=== PATIENT | female | born 1935 | race Caucasian/White ===

== ENCOUNTER 2025-03-01 18:03 | Inpatient (IN) | payer MEDICARE, BC, SELFPAY ==
[2025-03-01] VITALS (9 sets, daily range): BP systolic 98–155; BP diastolic 55–86; BMI 26.1; BMI 27.0
[2025-03-01 12:04] LABS: % Basophils 0.4 % (0-2); % Eosinophils 0.1 % (0-6); % Immature Granulocytes 0.9 % (0-0.5); % Lymphocytes 3.8 % (20.5-51.1); % Monocytes 9.4 % (1.7-9.3); % Neutrophils 85.4 % (42.2-75.2); Absolute Basophils 0.1 10^3/uL (0-0.2); Absolute Immature Granulocytes 0.1 10^3/uL (0-0.05); Absolute Lymphocytes 0.6 10^3/uL (1.2-3.4); Absolute Monocytes 1.5 10^3/uL (0.1-0.6); Absolute Neutrophils 13.9 10^3/uL (1.4-6.5); Hematocrit 33.9 % (37.0-47.0); Hemoglobin 11.1 g/dL (12.0-16.0); Mean Corp Hgb Conc. 32.7 g/dL (33.0-37.0); Mean Corpuscular Hgb 28.3 pg (27.0-31.0); Mean Corpuscular Volume 86.5 fL (81.0-99.0); Mean Platelet Volume 9.7 fL (7.4-10.4); Nucleated Red Blood Cells % 0 %; Platelet Count 223 10^3/uL (130-400); Red Blood Cell Count 3.92 10^6/uL (4.20-5.40); Red Cell Dist. Width 13.6 % (11.5-14.5); White Blood Cell Count 16.2 10^3/uL (4.8-10.8)
[2025-03-01 12:19] LABS: ALT (SGPT) 39 U/L (0-35); AST (SGOT) 62 U/L (14-36); Albumin 3.9 g/dl (3.5-5.0); Alkaline Phosphatase 74 U/L (38-126); Blood Urea Nitrogen 16 mg/dl (7-17); Calcium 8.4 mg/dl (8.4-10.2); Carbon Dioxide 23 mmol/L (22-30); Chloride 100 mmol/L (98-107); Estimated Creatinine Clearance 32 ml/min; Glucose 309 mg/dl (70-99); Potassium 3.8 mmol/L (3.5-5.1); Sodium 131 mmol/L (135-145); Total Bilirubin 0.9 mg/dl (0.2-1.3); Total Protein 6.8 g/dl (6.3-8.2); eGFR 54.53
[2025-03-01 12:25] LABS: COVID-19 Antigen Negative (Negative)
[2025-03-01 12:30] LABS: NT-proBNP 1150 pg/ml; Troponin I 0.022 ng/ml
--- NOTE | 2025-03-01 12:33 | ED.GENMED ---
History of Present Illness
General
Chief Complaint: Dizziness
Source: patient and family (daughter at bedside, friend at bedside)
Exam Limitations: none
Time Seen by Provider: 03/01/25 12:05
Nursing documentation reviewed up to this point in time: agreed with
History of Present Illness
History of Present Illness:
89 yo female with h/o HTN, HLD, GERD, NIDDM, depression, presents from home after a falter. Friend at bedside and daughter state last night between 9-11 p.m. they were talking with patient and 'she wasn't making any sense.' The say she had a hard
time getting her words out.
Arrives via EMS reporting Pulse ox 88% RA and placed on O2 4 L N.C
Pt and daughter state pt has been complaining of dizziness with movement for past 2 days. Pt states 'everything spins.' She had a migraine 4 days ago, took Imetrex with good relief. she had chronic intermittent facial pains and these have also been
occurring intermittently but states these are nothing new. She's had general weakness, nausea off and on and no appetite past 3 days.
She had a normal BM today and has been urinating as usual.
Today, they were walking her out to the car, her legs gave out and she faltered, her friend lowered her to ground where pt sat between her legs until EMS arrived. No LOC
Pt states her arms and legs became weak
She denies CP, SOB, cough, abdominal pain, denies n/v/d/c.
She flew here from [place] 02/16 and rode to and from for a family graduation the following week.
Past History
Past History
ED Past Medical History: GERD, HTN, Hypercholesterolemia, NIDDM and Other (anemia on Iron supps)
ED Past Surgical History: Appendectomy, Orthopedic, Tonsilectomy and Other (cataracts)
Social History
Tobacco: Non-smoker
Personal:
Review of Systems
Review of Systems
Allergies reviewed?: Yes
All Other Systems: ROS reviewed and negative except as documented in HPI and ROS
Constitutional: Reports fatigue; Denies fever
Respiratory: Denies cough or trouble breathing
Cardiac: Denies chest pain or syncope
ABD/GI: Reports nausea and anorexia; Denies abdominal pain, vomiting, diarrhea or constipated
: Denies dysuria
Musculoskeletal: Denies edema
Skin: Reports no symptoms
Neurological: Reports dizzy and other (intermittent chronic facial pains); Denies weakness or numbness
Phy Exam
Physical Exam
Physical Exam:
GENERAL: No acute distress. A&Ox3.
CONSTITUTIONAL: Afebrile.
EYES: clear, conjunctivae normal, EOMs intact. PERRL. Good red reflex bilaterally.
ENMT: moist mucus membranes, Pharynx nl
RESPIRATORY: Regular respirations, nonlabored, lungs clear.
CARDIOVASCULAR: Regular rate and rhythm, no murmurs, no rubs.
GI: Soft, nontender, normal BS
MUSCULOSKELETAL: Moves with ease. Well perfused. No edema
SKIN: Warm, dry, pink, deep clean abrasion lateral aspect left ankle
PSYCH: Normal mood and affect. Well kept, interactive and appropriate
NEUROLOGIC: Awake, alert and oriented. Speech clear. Cranial nerves II through XII intact. Hkgfmt-sc-lsdb intact. No focal neurological deficits
Course
Orders/Labs/Results
Orders:
Orders
03/01/25 11:49
Electrocardiogram (*1) Urgent
Reason for Study: Chest Pain
Cardiac Monitoring- Treatment ONCE
EKG- Treatment ONCE
IV Insert/Care/Rem.- Treatment PRN
O2 Therapy [RESP] Urgent
Titrate/Wean O2 to maintain O2 sat greater than (%): 90
Special Instructions: Maintain sats >/=90%
Pulse Ox/spot Check [RESP] Urgent
Quantity: 1
Special Instructions: ON ROOM AIR
03/01/25 11:55
Type And Crossmatch [Type+Screen] Urgent
COVID-19 Antigen Urgent
Source: Nasal Swab
Complete Blood Count/With Diff Urgent
Comprehensive Metabolic Panel Urgent
NT-proBNP Urgent
TSH Reflex To Free T4 Urgent
Comment: ADD ON
Troponin I Urgent
Influenza A+B Rapid Molecular Urgent
[place] Source: Nasal Swab
Specimen Description:
03/01/25 12:21
ABO2 Urgent
BBK Wristband Number:
Associate notified that ABO2 has been ordered: [id number]
Date: 03/01/25
Time: 12:23
Glue Mixer ID: [id number]
03/01/25 12:29
Add On- LAB Urgent
Tests Added?: TSH reflex T4
03/01/25 12:30
CT Head W/o Iv Contrast Urgent
Comment:
Reason For Exam: episode aphasia last pm, now dizzy
03/01/25 12:37
D-Dimer Urgent
03/01/25 14:09
CT Chest PE Study Urgent
Comment:
Reason For Exam: SOB hypoxic, near syncope
03/01/25 Dinner
Regular
At Your Request: Limited Participation
Does patient need a safe tray?: No
03/01/25 16:35
Aztreonam [Azactam] 2,000 mg IV NOW STA
03/01/25 16:43
Sterile Water [Sterile Water For Injection] 20 ml .ROUTE .STK-MED
03/01/25 17:12
Admit/Transfer Patient As Directed
Co-Sign Provider:
Level of Care: Inpatient admission
Assign to:: Telemetry
Physician / Group: sindi
Diagnosis: pneumonia
Reason for Telemetry: Arrhythmia
Date to Stop Telemetry: 03/04/25
Time to Stop Telemetry: 11:00
Reason for Hospitalization: weakness
Expected length of stay greater than two midnights?: Yes
ELOS- Estimated Length of Stay in days: 2
I certify the patient meets the requirements for IP care: Yes
PRN Pain Medication Management As Directed
May give lesser potent ordered pain med per pt: Yes
preference::
Protocol:: Medication orders for pain may be administered in a
manner that supports deferring to patient preference
when the pt is:
- Requesting an ordered lesser potent pain medication.
Least to most potent pain medications are defined
as: acetaminophen < NSAID < tramadol < opioids
(morphine, oxycodone, hydromorphone).
- Requesting a lesser dose of the same medication IF
ORDERED.
- Requesting a less intrusive route of administration
if both routes are prescribed by the provider (PO <
IV).
03/01/25 17:14
Code Status As Directed
Resuscitation Status: Full Code
03/01/25 17:24
Sputum Culture [Respiratory Culture/Gram Stain] Routine
[place] Source: Sputum
Specimen Description:
03/01/25 18:40
LevoFLOXacin 750 MG/150 ML [Levaquin] 750 mg in 150 ml IV Q24H
Meclizine [Antivert] 25 mg PO DAILY PRN dizziness
Tizanidine [Zanaflex] 2 mg PO Q8HPRN PRN muscle spasm
duloxetine 60 mg PO QPM
sumatriptan succinate 100 mg PO DAILYPRN PRN
03/01/25 18:40
Activity As Directed
Activity Level: As Tolerated
Vital Signs As Directed
Frequency: Per unit guidelines
DX Deep Vein Thrombosis Video Routine
03/01/25 20:00
Carbamazepine [Tegretol] 200 mg PO BID
Heparin 5,000 units SC Q12
Metformin Extended Release [Glucophage Xr Extended Release] 500 mg PO BID
03/02/25 06:00
Complete Blood Count/With Diff IN AM
Comprehensive Metabolic Panel IN AM
03/02/25 08:00
Ascorbic Acid [Vitamin C] 500 mg PO DAILY
Atorvastatin [Lipitor] 20 mg PO DAILY
Cholecalciferol (Vitamin D3) [VITAMIN D3 (cholecalciferol)] 25 mcg PO DAILY
Cyanocobalamin [Vitamin B-12] 1,000 mcg PO DAILY
Duloxetine Delayed Release [Cymbalta Delayed Release] 20 mg PO DAILY
Ferrous Sulfate [Feosol] 325 mg PO DAILY
Losartan [Cozaar] 100 mg PO DAILY
Multivitamin [Theragran] 1 tablet PO DAILY
omeprazole 20 mg PO DAILY
03/04/25 11:00
DC Protocol for Telemetry ONCE
Abnormal Lab Results
03/01/25 03/01/25
11:55 12:37
WBC 16.2 H 10^3/uL
(4.8-10.8)
RBC 3.92 L 10^6/uL
(4.20-5.40)
Hgb 11.1 L g/dL
(12.0-16.0)
Hct 33.9 L %
(37.0-47.0)
MCHC 32.7 L g/dL
(33.0-37.0)
Abs Immat Gran (auto) 0.1 H 10^3/uL
(0-0.05)
Absolute Neuts (auto) 13.9 H 10^3/uL
(1.4-6.5)
Absolute Lymphs (auto) 0.6 L 10^3/uL
(1.2-3.4)
Absolute Monos (auto) 1.5 H 10^3/uL
(0.1-0.6)
Immature Gran % 0.9 H %
(0-0.5)
Neutrophils % 85.4 H %
(42.2-75.2)
Lymphocytes % 3.8 L %
(20.5-51.1)
Monocytes % 9.4 H %
(1.7-9.3)
D-Dimer 1.62 H ug/mlFEU
(0.00-0.50)
Sodium 131 L mmol/L
(135-145)
Glucose 309 H mg/dl
(70-99)
AST 62 H U/L
(14-36)
ALT 39 H U/L
(0-35)
03/01/25 11:55
03/01/25 11:55
Vital Signs
Initial and Last Documented VS:
Initial Vital Signs
Pulse Resp Pulse Ox
80 21 96
03/01/25 11:50 03/01/25 11:50 03/01/25 11:50
Last Documented Vital Signs
Temp Pulse Resp BP Pulse Ox
101.1 F H 91 16 155/86 94
03/01/25 18:53 03/01/25 18:53 03/01/25 18:53 03/01/25 18:53 03/01/25 18:53
MDM/Problems Addressed
Differential Diagnosis Includes:
TIA, BPPV, PNA, PE
MDM/Problems Addressed:
89 yo female with h/o HTN, HLD, GERD, NIDDM, depression, presents from home after a falter. Friend at bedside and daughter state last night between 9-11 p.m. they were talking with patient and 'she wasn't making any sense.' The say she had a hard
time getting her words out.
Arrives via EMS reporting Pulse ox 88% RA and placed on O2 4 L N.C
Pt and daughter state pt has been complaining of dizziness with movement for past 2 days. Pt states 'everything spins.' She had a migraine 4 days ago, took Imetrex with good relief. she had chronic intermittent facial pains and these have also been
occurring intermittently but states these are nothing new. She's had general weakness, nausea off and on and no appetite past 3 days.
She had a normal BM today and has been urinating as usual.
Today, they were walking her out to the car, her legs gave out and she faltered, her friend lowered her to ground where pt sat between her legs until EMS arrived. No LOC
Pt states her arms and legs became weak
She denies CP, SOB, cough, abdominal pain, denies n/v/d/c.
She flew here from [place] 02/16 and rode to and from for a family graduation the following week.
12:50 p.mm.
EKG: NSR
CBC: WBC 16.2 with elevated neutrophils
CMP: No clinically significant abnormality
Troponin within normal limits
BNP 1150 within the normal range for her age
2:10 p.m.
D dimer 1.62
Pulse ox 94% on 4 L NC. HR 84 No respiratory distress
Pt remains comfortable
Head CT radiology report: IMPRESSION:
No acute intracranial abnormality noted.
Moderate atrophy. Progressed.
4:[address]: No PE, large left upper lobe pneumonia
Pt gets 'significant hives, redness' with PCN. Astreonam ordered
Hospitalist notified of admission.
Chronic conditions affecting care: HTN
*EKG
EKG Intrepretation Date: 03/01/25
Interpretation: normal
Heart Rate: 79
Rate: normal
Rhythm: sinus
Ruso: normal axis
Interval: normal interval
QRS Pattern: normal QRS
Ischemia: no ischemia
*Critical Care Note
Total Time (30-74mins, 75-104mins- exclusive of procedures): Not Applicable
ED Attending Note
-
Portions of this chart may have been created with voice recognition software.� Occasional wrong word or��sound alike� substitutions may have occurred due to the inherent limitations of voice recognition software.
Discharge Plan
Departure
Patient Disposition: Admit
Date of Disposition: 03/01/25
Time of Disposition: 16:22
Presentation/result/management discussed w/ accepting MD/DO: Hospitalist
Condition: Fair
Covid-19: Negative COVID-19
Discharge Problem:
Left upper lobe pneumonia, Hypoxemia
Interventions
Interventions:
*Risk Screen - Suicide Last Done: 03/01/25 11:56
*General Assessment Last Done: 03/01/25 11:56
*Neglect/Abuse Screening Last Done: 03/01/25 11:56
*ED- Fall Risk Assessment Last Done: 03/01/25 11:56
*ED COVID-19 Vaccine History Last Done: 03/01/25 11:56
*Nursing Disposition Last Done: 03/01/25 18:32
ED- Neurological Assessment Last Done: 03/01/25 12:10
ED- Cardiac Assessment Last Done: 03/01/25 12:10
ED Swallowing Screen Last Done: 03/01/25 17:04
Discharge Date and Time
Discharge Date/Time: 03/01/25 18:33
[2025-03-01 13:01] LABS: D-Dimer 1.62 ug/mlFEU (0.00-0.50)
[2025-03-01 14:36] LABS: TSH Reflex To Free T4 2.21 uIU/ml (0.47-4.68)
[2025-03-01] MEDS: AZACTAM 2000 MG IV (16:44)
--- NOTE | 2025-03-01 17:21 | HPS.HSE ---
Addendum entered and electronically signed by Bella Romano MD 03/01/25 20:33:
Stopped metformin and added ISS.
Addendum entered and electronically signed by Bella Romano MD 03/01/25 19:59:
Patient becoming febrile with fever 101.1. She had vomiting. Currently meets sepsis criteria. IV fluid bolus maintenance IV fluids ordered. Blood cultures ordered.
Original Note:
Family Physician
-
Family Physician: * NONE
Chief Complaint
-
weakness
History of Present Illness
Allergies
Allergy/AdvReac Type Severity Reaction Status Date / Time
codeine Allergy Unknown Verified 04/22/22 11:18
Penicillins Allergy Unknown Verified 04/22/22 11:18
Home Medications
ascorbic acid (vitamin C) 500 mg tablet (Vitamin C) 500 mg PO DAILY 03/01/25
atorvastatin 20 mg tablet 20 mg PO DAILY 03/01/25
carbamazepine 200 mg tablet 200 mg PO BID 03/01/25
cholecalciferol (vitamin D3) 25 mcg (1,000 unit) tablet 25 mcg PO DAILY 03/01/25
cyanocobalamin (vitamin B-12) 1,000 mcg tablet 1,000 mcg PO DAILY 03/01/25
duloxetine 20 mg capsule,delayed release 20 mg PO DAILY 03/01/25
duloxetine 60 mg capsule,delayed release sprinkle 60 mg PO QPM 03/01/25
ferrous sulfate 325 mg (65 mg iron) tablet 325 mg PO DAILY 03/01/25
losartan 100 mg tablet 100 mg PO DAILY 03/01/25
meclizine 25 mg tablet 25 mg PO DAILY PRN dizziness 03/01/25
metformin 500 mg tablet,extended release 24 hr 500 mg PO BID 03/01/25
omeprazole 20 mg tablet,delayed release 20 mg PO DAILY 03/01/25
sumatriptan succinate 100 mg tablet 100 mg PO DAILYPRN PRN migraine 03/01/25
therapeutic multivitamin 1 tab PO DAILY 03/01/25
tizanidine 2 mg tablet 2 mg PO Q8HPRN PRN muscle spasm 03/01/25
Medical History
Past Medical History
Past Medical History: Reports Other (89-year-old female past medical history of hypertension, hyperlipidemia, GERD, diabetes, depression presenting after a falter.. Friend at bedside and daughter states that last night between 9 to 11 PM they were
talking with patient and she was not making any sense. They say she had a hard time get)
Past Surgical History: Reports Other (Appendectomy, Orthopedic, Tonsilectomy and Other (cataracts))
Social History
Tobacco: Non-smoker
Alcohol: None
Drug: None
Family History
Family History: Not pertinent
Allergies / Home Medications
Allergies reflects when Allergies were last updated in [facility].
Home Medications with original date entered in [facility]
Allergy/Medication List:
Allergies
Allergy/AdvReac Type Severity Reaction Status Date / Time
codeine Allergy Unknown Verified 04/22/22 11:18
Penicillins Allergy Unknown Verified 04/22/22 11:18
Home Medications
ascorbic acid (vitamin C) 500 mg tablet (Vitamin C) 500 mg PO DAILY 03/01/25
atorvastatin 20 mg tablet 20 mg PO DAILY 03/01/25
carbamazepine 200 mg tablet 200 mg PO BID 03/01/25
cholecalciferol (vitamin D3) 25 mcg (1,000 unit) tablet 25 mcg PO DAILY 03/01/25
cyanocobalamin (vitamin B-12) 1,000 mcg tablet 1,000 mcg PO DAILY 03/01/25
duloxetine 20 mg capsule,delayed release 20 mg PO DAILY 03/01/25
duloxetine 60 mg capsule,delayed release sprinkle 60 mg PO QPM 03/01/25
ferrous sulfate 325 mg (65 mg iron) tablet 325 mg PO DAILY 03/01/25
losartan 100 mg tablet 100 mg PO DAILY 03/01/25
meclizine 25 mg tablet 25 mg PO DAILY PRN dizziness 03/01/25
metformin 500 mg tablet,extended release 24 hr 500 mg PO BID 03/01/25
omeprazole 20 mg tablet,delayed release 20 mg PO DAILY 03/01/25
sumatriptan succinate 100 mg tablet 100 mg PO DAILYPRN PRN migraine 03/01/25
therapeutic multivitamin 1 tab PO DAILY 03/01/25
tizanidine 2 mg tablet 2 mg PO Q8HPRN PRN muscle spasm 03/01/25
Review of Systems
-
History Source: Patient
A 12 point ROS was completed and negative except as noted: Yes
Constitutional: Reports No Symptoms
EENT: Reports No Symptoms
Respiratory: Reports No Symptoms
Cardiac: Reports No Symptoms
Abdomen/GI: Reports No Symptoms
: Reports No Symptoms
Musculoskeletal: Reports No Symptoms
Skin: Reports No Symptoms
Neurological: Reports No Symptoms
Endocrine: Reports No Symptoms
Hematologic/Lymphatic: Reports No Symptoms
Psych: Reports No Symptoms
Physical Exam
Vital Signs
Vital Signs
Temp Pulse Resp BP Pulse Ox
98.5 F 81 28 120/64 92
03/01/25 11:53 03/01/25 16:15 03/01/25 16:15 03/01/25 16:04 03/01/25 16:15
Physical Exam
General: Well Developed, Well Nourished and No Apparent Distress
HEENT: NormoCephalic, Moist mucous membranes and Atraumatic
Respiratory: Clear
Cardiac: S1/S2 and Regular Rhythm; No Murmur or Rub
GI: Soft, Non Tender, Non Distended and Normal Bowel Sounds; No Organomegaly
Rectal: Deferred by Provider
Musculoskeletal: No Clubbing, No Cyanosis and No Edema
Skin: No Rash
Neuro: Nonfocal/grossly intact
Laboratory Results
-
03/01/25 11:55
03/01/25 11:55
Laboratory Results
Total Bilirubin 0.9 mg/dl (0.2-1.3) 03/01/25 11:55
AST 62 U/L (14-36) H 03/01/25 11:55
ALT 39 U/L (0-35) H 03/01/25 11:55
Alkaline Phosphatase 74 U/L (38-126) 03/01/25 11:55
Troponin I 0.022 ng/ml 03/01/25 11:55
Data Reviewed
-
Lab Data: Labs Reviewed by me
Old Records: Reviewed
Impression/Plan
-
IMPRESSION:
PLAN:
# Acute hypoxemic respiratory failure secondary to large left upper lobe pneumonia
- Leukocytosis 16
-sputum culture
- D-dimer 1.[address] PE which showed large left upper lobe pneumonia
- COVID and influenza negative
- Levaquin given penicillin allergy
# Mild transaminitis possibly hepatic steatosis
- Continue to monitor
Essential hypertension
- Continue losartan
Hyperlipidemia
- Continue statin
GERD
- Continue omeprazole
Type 2 diabetes
- Continue metformin
Depression
- Continue duloxetine
Chronic anemia
- Continue iron supplement
History of migraines
- Continue Tegretol
History of temporomandibular joint dysfunction
Full code
DVT prophylaxis�heparin
Regular diet
--- NOTE | 2025-03-01 18:51 | PTCARENOTE ---
Pt. arrived from ED, pulled over to bed by staff. Pt. n/v with movement. Temp 101.4, Dr. Romano made aware via tiger text. Pt. settled in bed at this time with monitoring coordinator in place. Will pass on to oncoming shift RN. Call escobedo within reach
and bed alarm on.
[2025-03-01 21:50] LABS: Glucose - Point of Care 202 mg/dl (70-99)
[2025-03-01] MEDS: HEPARIN 5000 UNITS SC (22:00)
[2025-03-01] MEDS: NSS 1000 IV (22:00)
[2025-03-01] MEDS: LEVAQUIN 150 IV (22:01)
[2025-03-01] MEDS: TEGRETOL 200 MG PO (22:01)
[2025-03-01] MEDS: CYMBALTA DELAYED RELEASE 60 MG PO (22:02)
--- NOTE | 2025-03-01 22:30 | PTCARENOTE ---
Receive pt from ER. Pt alert oriented X2, confused to time, in no resp distress. pt pulled over to her bed. Pt oriented to place and time, bed alarm in place. Pt on NSR on telemonitor. T=101.1, HR=91, RW=071/86, SPo2=95% on 4L O2. IVFs Bolus and
Levaquin infusing as per order. Recheck Temp=99. Will continue to monitor the pt.
[2025-03-02] MEDS: NSS 1000 IV ×3 (00:06→22:07)
[2025-03-02 03:02] VITALS: BP 128/67
[2025-03-02 07:38] VITALS: BP 106/65
[2025-03-02 07:58] LABS: % Basophils 0.3 % (0-2); % Eosinophils 0.1 % (0-6); % Immature Granulocytes 1.2 % (0-0.5); % Monocytes 9.9 % (1.7-9.3); % Neutrophils 83.5 % (42.2-75.2); Absolute Immature Granulocytes 0.2 10^3/uL (0-0.05); Absolute Lymphocytes 0.7 10^3/uL (1.2-3.4); Absolute Monocytes 1.4 10^3/uL (0.1-0.6); Absolute Neutrophils 11.6 10^3/uL (1.4-6.5); Hematocrit 28.3 % (37.0-47.0); Hemoglobin 9.3 g/dL (12.0-16.0); Mean Corp Hgb Conc. 32.9 g/dL (33.0-37.0); Mean Corpuscular Hgb 28.9 pg (27.0-31.0); Mean Corpuscular Volume 87.9 fL (81.0-99.0); Mean Platelet Volume 10.4 fL (7.4-10.4); Nucleated Red Blood Cells % 0 %; Platelet Count 209 10^3/uL (130-400); Red Blood Cell Count 3.22 10^6/uL (4.20-5.40); Red Cell Dist. Width 13.8 % (11.5-14.5); White Blood Cell Count 13.9 10^3/uL (4.8-10.8)
[2025-03-02 08:39] LABS: ALT (SGPT) 39 U/L (0-35); AST (SGOT) 45 U/L (14-36); Albumin 3.2 g/dl (3.5-5.0); Alkaline Phosphatase 69 U/L (38-126); Blood Urea Nitrogen 17 mg/dl (7-17); Calcium 7.3 mg/dl (8.4-10.2); Carbon Dioxide 22 mmol/L (22-30); Chloride 102 mmol/L (98-107); Estimated Creatinine Clearance 33 ml/min; Glucose 146 mg/dl (70-99); Potassium 3.7 mmol/L (3.5-5.1); Sodium 132 mmol/L (135-145); Total Bilirubin 0.5 mg/dl (0.2-1.3); Total Protein 5.9 g/dl (6.3-8.2); eGFR > 60.00
[2025-03-02] MEDS: PROTONIX 40 MG PO (08:59)
[2025-03-02] MEDS: VITAMIN C 500 MG PO (09:00)
[2025-03-02] MEDS: VITAMIN B-12 1000 MCG PO (09:00)
[2025-03-02] MEDS: FEOSOL 325 MG PO (09:00)
[2025-03-02] MEDS: HEPARIN 5000 UNITS SC ×2 (09:00→20:50)
[2025-03-02] MEDS: VITAMIN D3 (cholecalciferol) 25 MCG PO (09:00)
[2025-03-02] MEDS: TEGRETOL 200 MG PO ×2 (09:00→20:51)
[2025-03-02] MEDS: CYMBALTA DELAYED RELEASE 20 MG PO (09:00)
[2025-03-02] MEDS: LIPITOR 20 MG PO (09:00)
[2025-03-02] MEDS: THERAGRAN 1 TABLET PO (09:00)
[2025-03-02] MEDS: COZAAR 100 MG PO (09:01)
[2025-03-02 09:08] LABS: Glucose - Point of Care 157 mg/dl (70-99)
[2025-03-02] MEDS: NOVOLOG FLEXPEN-LOW RESISTANCE 1 UNITS SC ×2 (09:33→17:09)
[2025-03-02] MEDS: ZOFRAN 4 MG IV (09:56)
--- NOTE | 2025-03-02 10:29 | CM ---
Patient seen bedside, initial assessment completed. Patient is a 89-year-old female past medical history of hypertension, hyperlipidemia, GERD, diabetes, depression presenting after a falter.
Patient primarily resides in [place], [place], but is currently visiting her daughter who lives locally in [place] for next 3-4 months.
Daughter's home is a 2STH w/ steps, patient uses garage entrance as front steps are too high to ascend. Patient uses cane to ambulate, independent w/ ADLs. Patient stated bathroom was redone w/ a new shower and has shower chair. No SNF/HC hx
reported. OP therapy in the past.
Address, point of contact and insurance verified
PCP: Arlin Mullins
Pharmacy: [facility]
PT/OT ordered, will watch for any recommendations
Plan: Await PT/OT to determine potential d/c plan
[2025-03-02 10:36] LABS: Glycohemoglobin (HgbA1c) 8.1 % (4.0-5.6)
[2025-03-02 11:09] VITALS: BP 104/50
--- NOTE | 2025-03-02 11:26 | W.PN.HOSP.TC ---
Today's Communication/Plan
-
see outlined plan below
Assessment / Plan
Assessment / Plan
Assessment:
Acute hypoxemic respiratory failure secondary to large left upper lobe pneumonia
Sepsis POA (fever, leucocytosis)
- continue Levaquin given PCN allergy
- monitor fever/WBC trends
- wean O2 as able
- PT/OT/ST evals
Hyponatremia
- monitor
Mild transaminitis possibly hepatic steatosis
- continue to monitor
Essential hypertension
- continue losartan
Hyperlipidemia
- continue statin
GERD
- continue omeprazole
Type 2 diabetes
- continue metformin
- A1c is 8.1%
Depression
- continue duloxetine
Chronic anemia
- continue iron supplement
History of migraines
- continue Tegretol
History of temporomandibular joint dysfunction
DVT ppx: SC heparin
Code: Full
Anticipated Discharge: > 48 hours
Subjective/Interval History
-
Date of Service: March 02, 2025
earlier was mildly nauseated but improving
resting comfortably, no complaints at present
on 3L NC
Objective Data
-
Labs:
Laboratory Results
03/02/25
06:14
WBC 13.9 H
Hgb 9.3 L
Hct 28.3 L
Plt Count 209
Sodium 132 L
Potassium 3.7
Chloride 102
Carbon Dioxide 22
BUN 17
Creatinine 0.9
Glucose 146 H
Calcium 7.3 L
Total Bilirubin 0.5
AST 45 H
ALT 39 H
Alkaline Phosphatase 69
Vital Signs:
Vital Signs
Temp Pulse Resp BP Pulse Ox
100 F 86 16 106/65 95
03/02/25 07:38 06/02/25 07:38 03/02/25 07:38 03/02/25 07:38 03/02/25 07:38
I&O
03/01/25 03/02/25 03/03/25
06:59 06:59 06:59
Intake Total 1550 / 1550
Balance 1550 / 1550
Physical Exam
-
General: No Apparent Distress
HEENT: Normocephalic and Atraumatic
Respiratory: Rhonchi (DONOVAN) and Crackles (DONOVAN)
Cardiac: Regular Rhythm and S1/S2
GI: Soft and Nontender
Genito-urinary: No Costovertebral Tender
Musculoskeletal: No Edema
Neuro: AO x 3
Psych: Calm
Data Reviewed
-
Total Time Spent with Patient (in minutes): 45
Labs: Labs Reviewed by me
[2025-03-02] MEDS: TYLENOL 650 MG PO ×2 (12:12→23:26)
[2025-03-02 12:43] LABS: Glucose - Point of Care 240 mg/dl (70-99)
[2025-03-02] MEDS: NOVOLOG FLEXPEN-LOW RESISTANCE 2 UNITS SC (13:25)
[2025-03-02] MEDS: MUCINEX 1200 MG PO ×2 (13:26→20:51)
[2025-03-02 15:08] VITALS: BP 91/48
[2025-03-02] MEDS: CYMBALTA DELAYED RELEASE 60 MG PO (17:01)
[2025-03-02 17:05] LABS: Glucose - Point of Care 173 mg/dl (70-99)
[2025-03-02 20:45] VITALS: BP 115/64
[2025-03-02 21:37] LABS: Glucose - Point of Care 174 mg/dl (70-99)
[2025-03-02 23:24] VITALS: BP 112/58
[2025-03-03] VITALS (10 sets, daily range): BP systolic 98–124; BP diastolic 55–65; PULSE 79; O2SAT 94
[2025-03-03 07:55] LABS: Hematocrit 26.6 % (37.0-47.0); Hemoglobin 8.8 g/dL (12.0-16.0); Mean Corp Hgb Conc. 33.1 g/dL (33.0-37.0); Mean Corpuscular Hgb 29.3 pg (27.0-31.0); Mean Corpuscular Volume 88.7 fL (81.0-99.0); Mean Platelet Volume 9.8 fL (7.4-10.4); Platelet Count 205 10^3/uL (130-400); Red Cell Dist. Width 14.1 % (11.5-14.5); White Blood Cell Count 11.4 10^3/uL (4.8-10.8)
[2025-03-03 08:12] LABS: Glucose - Point of Care 163 mg/dl (70-99)
[2025-03-03 08:35] LABS: ALT (SGPT) 39 U/L (0-35); AST (SGOT) 49 U/L (14-36); Albumin 2.8 g/dl (3.5-5.0); Alkaline Phosphatase 60 U/L (38-126); Blood Urea Nitrogen 17 mg/dl (7-17); Calcium 6.9 mg/dl (8.4-10.2); Carbon Dioxide 22 mmol/L (22-30); Chloride 107 mmol/L (98-107); Estimated Creatinine Clearance 30 ml/min; Glucose 149 mg/dl (70-99); Potassium 3.5 mmol/L (3.5-5.1); Sodium 134 mmol/L (135-145); Total Bilirubin 0.4 mg/dl (0.2-1.3); Total Protein 5.3 g/dl (6.3-8.2); eGFR 54.53
[2025-03-03] MEDS: COZAAR PO (08:54)
[2025-03-03] MEDS: NOVOLOG FLEXPEN-LOW RESISTANCE 1 UNITS SC ×2 (09:28→12:58)
[2025-03-03] MEDS: HEPARIN 5000 UNITS SC ×2 (09:29→20:14)
[2025-03-03] MEDS: LIPITOR 20 MG PO (09:29)
[2025-03-03] MEDS: VITAMIN C 500 MG PO (09:29)
[2025-03-03] MEDS: CYMBALTA DELAYED RELEASE 20 MG PO (09:29)
[2025-03-03] MEDS: TEGRETOL 200 MG PO ×2 (09:29→20:14)
[2025-03-03] MEDS: FEOSOL 325 MG PO (09:29)
[2025-03-03] MEDS: THERAGRAN 1 TABLET PO (09:29)
[2025-03-03] MEDS: PROTONIX 40 MG PO (09:29)
[2025-03-03] MEDS: MUCINEX 1200 MG PO ×2 (09:29→20:13)
[2025-03-03] MEDS: VITAMIN D3 (cholecalciferol) 25 MCG PO (09:29)
[2025-03-03] MEDS: CALCIUM GLUCONATE 130 MG IV (09:30)
--- NOTE | 2025-03-03 09:48 | PTOTSP ---
Dysphagia Eval
Patient without signs of oral/pharyngeal dysphagia or aspiration. She has a history of GERD and moderate hiatal hernia that elevate risk for bottom up aspiration.
Recommend:
1. Regular, Thin
2. Medications as best tolerated
3. Aspiration and reflux precautions
4. No further dysphagia tx warranted. Please reconsult as appropriate.
--- NOTE | 2025-03-03 09:51 | W.PN.HOSP.TC ---
Today's Communication/Plan
-
wean O2; add IS/Acapella to facilitate
continue IVF until more established PO intake
Assessment / Plan
Assessment / Plan
Assessment:
Acute hypoxemic respiratory failure secondary to large left upper lobe pneumonia
Sepsis POA (fever, leucocytosis)
- continue Levaquin, day 3 given PCN allergy
- monitor fever/WBC trends
- wean O2 as able
- PT/OT/ST evals
Hyponatremia
- monitor
Mild transaminitis possibly hepatic steatosis
- continue to monitor
Essential hypertension
- continue losartan
Hyperlipidemia
- continue statin
GERD
- continue omeprazole
Type 2 diabetes
- continue metformin
- A1c is 8.1%
Depression
- continue duloxetine
Chronic anemia
- continue iron supplement
History of migraines
- continue Tegretol
History of temporomandibular joint dysfunction
Hypocalcemia in setting of hypoalbuminemia
- suspect dilutional effect from IVF; will replete with IV Calcium
DVT ppx: SC heparin
Code: Full
Anticipated Discharge: 24 - 48 hours
Subjective/Interval History
-
Date of Service: March 03, 2025
more alert today
remains on 3L NC
denies any complaints
Objective Data
-
Labs:
Laboratory Results
03/03/25
07:38
WBC 11.4 H
Hgb 8.8 L
Hct 26.6 L
Plt Count 205
Sodium 134 L
Potassium 3.5
Chloride 107
Carbon Dioxide 22
BUN 17
Creatinine 1.0
Glucose 149 H
Calcium 6.9 L*
Total Bilirubin 0.4
AST 49 H
ALT 39 H
Alkaline Phosphatase 60
Vital Signs:
Vital Signs
Temp Pulse Resp BP Pulse Ox
98.6 F 75 16 98/62 95
03/03/25 07:40 03/03/25 07:40 03/03/25 07:40 03/03/25 07:40 03/03/25 07:40
I&O
03/02/25 03/03/25 03/04/25
06:59 06:59 06:59
Intake Total 1550 / 1550 2520 / 2520
Output Total 400 / 400
Balance 1550 / 1550 0 / 2120
Physical Exam
-
General: No Apparent Distress
HEENT: Normocephalic and Atraumatic
Respiratory: Rhonchi (DONOVAN), Crackles (DONOVAN) and Decreased Breath Sounds; Negative Wheezes
Cardiac: Regular Rhythm and S1/S2
GI: Soft
Genito-urinary: No Costovertebral Tender
Musculoskeletal: No Edema
Neuro: AO x 3
Hematologic / Lymphatic: No Lymphadenopathy
Psych: Calm
Data Reviewed
-
Total Time Spent with Patient (in minutes): 45
Labs: Labs Reviewed by me
[2025-03-03] MEDS: IMITREX 100 MG PO (10:03)
[2025-03-03] MEDS: VITAMIN B-12 1000 MCG PO (10:03)
[2025-03-03] MEDS: NSS IV (11:33)
[2025-03-03 11:46] LABS: Glucose - Point of Care 192 mg/dl (70-99)
--- NOTE | 2025-03-03 15:58 | CM ---
email manager reviewed patient's chart and met with patient and spoke with patient's daughterShea by phone, physical therapy are recommending home with home care, per patient's daughter, Shea plan is for patient to go to her home in [place] when
stable, and she has selected [facility], [facility] liaison contacted, patient is currently on 2 liters of oxygen, patient will need home oxygen assessment.
Plan; Patient to go to rachel Valdivia's home at discharge.
[2025-03-03 16:14] LABS: Glucose - Point of Care 234 mg/dl (70-99)
[2025-03-03] MEDS: CYMBALTA DELAYED RELEASE 60 MG PO (17:01)
[2025-03-03] MEDS: NOVOLOG FLEXPEN-LOW RESISTANCE 2 UNITS SC (17:01)
[2025-03-03] MEDS: LEVAQUIN 150 IV (20:14)
[2025-03-03 21:53] LABS: Glucose - Point of Care 239 mg/dl (70-99)
[2025-03-04] VITALS (10 sets, daily range): BP systolic 102–186; BP diastolic 57–83; PULSE 80; O2SAT 92–93
[2025-03-04 07:41] LABS: Hematocrit 25.7 % (37.0-47.0); Hemoglobin 8.6 g/dL (12.0-16.0); Mean Corp Hgb Conc. 33.5 g/dL (33.0-37.0); Mean Corpuscular Hgb 29.1 pg (27.0-31.0); Mean Corpuscular Volume 86.8 fL (81.0-99.0); Mean Platelet Volume 9.8 fL (7.4-10.4); Platelet Count 244 10^3/uL (130-400); Red Blood Cell Count 2.96 10^6/uL (4.20-5.40); Red Cell Dist. Width 13.8 % (11.5-14.5); White Blood Cell Count 10.4 10^3/uL (4.8-10.8)
[2025-03-04 08:07] LABS: Glucose - Point of Care 174 mg/dl (70-99)
[2025-03-04 08:14] LABS: ALT (SGPT) 53 U/L (0-35); AST (SGOT) 64 U/L (14-36); Albumin 2.7 g/dl (3.5-5.0); Alkaline Phosphatase 64 U/L (38-126); Blood Urea Nitrogen 16 mg/dl (7-17); Calcium 7.8 mg/dl (8.4-10.2); Carbon Dioxide 22 mmol/L (22-30); Chloride 107 mmol/L (98-107); Estimated Creatinine Clearance 33 ml/min; Glucose 151 mg/dl (70-99); Potassium 3.6 mmol/L (3.5-5.1); Sodium 134 mmol/L (135-145); Total Bilirubin 0.3 mg/dl (0.2-1.3); eGFR > 60.00
[2025-03-04] MEDS: CYMBALTA DELAYED RELEASE 20 MG PO (08:22)
[2025-03-04] MEDS: VITAMIN C 500 MG PO (08:22)
[2025-03-04] MEDS: VITAMIN B-12 1000 MCG PO (08:22)
[2025-03-04] MEDS: NOVOLOG FLEXPEN-LOW RESISTANCE 1 UNITS SC ×2 (08:22→16:36)
[2025-03-04] MEDS: LIPITOR 20 MG PO (08:22)
[2025-03-04] MEDS: MUCINEX 1200 MG PO ×2 (08:22→19:28)
[2025-03-04] MEDS: HEPARIN 5000 UNITS SC ×2 (08:23→19:28)
[2025-03-04] MEDS: FEOSOL 325 MG PO (08:23)
[2025-03-04] MEDS: TEGRETOL 200 MG PO ×2 (08:23→19:28)
[2025-03-04] MEDS: PROTONIX 40 MG PO (08:23)
[2025-03-04] MEDS: THERAGRAN 1 TABLET PO (08:23)
[2025-03-04] MEDS: VITAMIN D3 (cholecalciferol) 25 MCG PO (08:23)
--- NOTE | 2025-03-04 10:30 | PTCARENOTE ---
Pt 88% on RA sitting OOB in chair. Placed on 1L, sat improved to 95%. Will continue to monitor.
--- NOTE | 2025-03-04 11:14 | VNURNOTE ---
Home Health Liaison met with patient at bedside to discuss [facility] nurse/therapy, visits, schedule and homebound status. Patient is agreeable and understands that visits at home will be 2-3 x per week to assess and teach medical management.
Patient is aware that [facility] will contact them for start of care in 1-2 days after discharge from .
[facility] referral completed in [facility].
--- NOTE | 2025-03-04 11:18 | W.PN.HOSP.TC ---
Today's Communication/Plan
-
continue IV abx
Assessment / Plan
Assessment / Plan
Assessment:
Acute hypoxemic respiratory failure secondary to large left upper lobe pneumonia
Sepsis POA (fever, leucocytosis)
- continue Levaquin, day 4 given PCN allergy
- monitor fever/WBC trends
- wean O2 as able
- PT/OT/ST evals - home/VN
Hyponatremia
- monitor
Mild transaminitis possibly hepatic steatosis
- continue to monitor
Essential hypertension
- continue losartan
Hyperlipidemia
- continue statin
GERD
- continue omeprazole
Type 2 diabetes
- continue metformin
- A1c is 8.1%
Depression
- continue duloxetine
Chronic anemia
- continue iron supplement
History of migraines
- continue Tegretol
History of temporomandibular joint dysfunction
Hypocalcemia in setting of hypoalbuminemia
- s/p IV Calcium
DVT ppx: SC heparin
Code: Full
Anticipated Discharge: 24 - 48 hours
Subjective/Interval History
-
Date of Service: March 04, 2025
88% on RA
denies SOB
Objective Data
-
Labs:
Laboratory Results
03/04/25
07:13
WBC 10.4
Hgb 8.6 L
Hct 25.7 L
Plt Count 244
Sodium 134 L
Potassium 3.6
Chloride 107
Carbon Dioxide 22
BUN 16
Creatinine 0.9
Glucose 151 H
Calcium 7.8 L
Total Bilirubin 0.3
AST 64 H
ALT 53 H
Alkaline Phosphatase 64
Vital Signs:
Vital Signs
Temp Pulse Resp BP Pulse Ox
98.2 F 74 16 113/61 95
03/04/25 07:40 03/04/25 07:40 03/04/25 07:40 03/04/25 07:40 03/04/25 09:00
I&O
03/03/25 03/04/25 03/05/25
06:59 06:59 06:59
Intake Total 2520 / 2520 790 / 790
Output Total 400 / 400
Balance 0 / 0 790 / 790
Physical Exam
-
General: No Apparent Distress
HEENT: Normocephalic and Atraumatic
Respiratory: Negative Wheezes
Cardiac: Regular Rhythm and S1/S2
GI: Soft and Nontender
Neuro: AO x 3
Psych: Calm
Data Reviewed
-
Total Time Spent with Patient (in minutes): 41
Labs: Labs Reviewed by me
--- NOTE | 2025-03-04 12:14 | CM ---
Per hospitalist, patient's daughter would like to plan for SNF instead of HH.
Spoke w/ daughter, Shea, who stated patient would receive more care at SNF, has concerns about patient's ability to navigate stairs in her home and would like patient be more able and confident after some rehab. Shea did not have any specific
facilities, agreeable to SNF in [facility] and surrounding area.
[facility]
Home O2 assessment ordered
Plan: SNF
[2025-03-04 12:46] LABS: Glucose - Point of Care 252 mg/dl (70-99)
[2025-03-04] MEDS: NOVOLOG FLEXPEN-LOW RESISTANCE 3 UNITS SC (13:12)
[2025-03-04 16:25] LABS: Glucose - Point of Care 150 mg/dl (70-99)
[2025-03-04] MEDS: CYMBALTA DELAYED RELEASE 60 MG PO (16:37)
[2025-03-04 21:17] LABS: Glucose - Point of Care 218 mg/dl (70-99)
[2025-03-05 03:00] VITALS: BP 121/66
[2025-03-05 07:08] VITALS: BP 140/74
[2025-03-05 07:34] LABS: Hematocrit 25.9 % (37.0-47.0); Hemoglobin 8.7 g/dL (12.0-16.0); Mean Corp Hgb Conc. 33.6 g/dL (33.0-37.0); Mean Corpuscular Hgb 29.1 pg (27.0-31.0); Mean Corpuscular Volume 86.6 fL (81.0-99.0); Mean Platelet Volume 9.7 fL (7.4-10.4); Platelet Count 291 10^3/uL (130-400); Red Blood Cell Count 2.99 10^6/uL (4.20-5.40); Red Cell Dist. Width 13.8 % (11.5-14.5); White Blood Cell Count 10.6 10^3/uL (4.8-10.8)
[2025-03-05 08:05] LABS: Glucose - Point of Care 186 mg/dl (70-99)
[2025-03-05 08:11] LABS: ALT (SGPT) 68 U/L (0-35); AST (SGOT) 77 U/L (14-36); Albumin 2.7 g/dl (3.5-5.0); Alkaline Phosphatase 72 U/L (38-126); Blood Urea Nitrogen 13 mg/dl (7-17); Calcium 7.9 mg/dl (8.4-10.2); Carbon Dioxide 23 mmol/L (22-30); Chloride 107 mmol/L (98-107); Estimated Creatinine Clearance 33 ml/min; Glucose 146 mg/dl (70-99); Potassium 3.5 mmol/L (3.5-5.1); Sodium 136 mmol/L (135-145); Total Bilirubin 0.3 mg/dl (0.2-1.3); Total Protein 5.3 g/dl (6.3-8.2); eGFR > 60.00
[2025-03-05] MEDS: HEPARIN 5000 UNITS SC ×2 (08:53→21:00)
[2025-03-05] MEDS: MUCINEX 1200 MG PO ×2 (08:54→21:00)
[2025-03-05] MEDS: TEGRETOL 200 MG PO ×2 (08:54→21:00)
[2025-03-05] MEDS: NOVOLOG FLEXPEN-LOW RESISTANCE 1 UNITS SC ×2 (08:55→17:59)
[2025-03-05] MEDS: VITAMIN B-12 1000 MCG PO (08:55)
[2025-03-05] MEDS: CYMBALTA DELAYED RELEASE 20 MG PO (08:55)
[2025-03-05] MEDS: THERAGRAN 1 TABLET PO (08:55)
[2025-03-05] MEDS: PROTONIX 40 MG PO (08:55)
[2025-03-05] MEDS: VITAMIN D3 (cholecalciferol) 25 MCG PO (08:55)
[2025-03-05] MEDS: VITAMIN C 500 MG PO (08:55)
[2025-03-05] MEDS: FEOSOL 325 MG PO (08:55)
[2025-03-05] MEDS: LIPITOR 20 MG PO (08:57)
[2025-03-05 11:32] VITALS: BP 134/69
--- NOTE | 2025-03-05 11:37 | W.PN.HOSP.TC ---
Today's Communication/Plan
-
SNF in 24 hours
continue Abx - switch to orals
Assessment / Plan
Assessment / Plan
Assessment:
Acute hypoxemic respiratory failure secondary to large left upper lobe pneumonia
Sepsis POA (fever, leucocytosis)
- continue Levaquin q48h, day 5/7 - switch to orals
- monitor fever/WBC trends
- wean O2 as able
- PT/OT/ST evals - SNF
Hyponatremia
- monitor
Mild transaminitis possibly hepatic steatosis
- continue to monitor
Essential hypertension
- continue losartan
Hyperlipidemia
- continue statin
GERD
- continue omeprazole
Type 2 diabetes
- continue metformin
- A1c is 8.1%
Depression
- continue duloxetine
Chronic anemia
- continue iron supplement
History of migraines
- continue Tegretol
History of temporomandibular joint dysfunction
Hypocalcemia in setting of hypoalbuminemia
- s/p IV Calcium
DVT ppx: SC heparin
Code: Full
Anticipated Discharge: Within 24 hours
Subjective/Interval History
-
Date of Service: March 05, 2025
denies any complaints at present
Objective Data
-
Labs:
Laboratory Results
03/05/25 03/05/25
06:00 06:19
WBC Cancelled 10.6
Hgb Cancelled 8.7 L
Hct Cancelled 25.9 L
Plt Count Cancelled 291
Sodium 136
Potassium 3.5
Chloride 107
Carbon Dioxide 23
BUN 13
Creatinine 0.9
Glucose 146 H
Calcium 7.9 L
Total Bilirubin 0.3
AST 77 H
ALT 68 H
Alkaline Phosphatase 72
Vital Signs:
Vital Signs
Temp Pulse Resp BP Pulse Ox
98.1 F 68 16 134/69 96
03/05/25 11:32 03/05/25 11:32 03/05/25 11:32 03/05/25 11:32 03/05/25 11:32
I&O
03/04/25 03/05/25 03/06/25
06:59 06:59 06:59
Intake Total 790 / 790 540 / 540
Balance 790 / 790 540 / 540
Physical Exam
-
General: No Apparent Distress
HEENT: Normocephalic and Atraumatic
Respiratory: Negative Wheezes
Cardiac: Regular Rhythm and S1/S2
GI: Soft and Nontender
Neuro: AO x 3
Psych: Calm
Data Reviewed
-
Total Time Spent with Patient (in minutes): 41
Labs: Labs Reviewed by me
[2025-03-05 12:42] LABS: Glucose - Point of Care 260 mg/dl (70-99)
--- NOTE | 2025-03-05 12:44 | CM ---
Chart reviewed and plan is for skilled placement at [facility], medical case worker spoke with patient and patient's daughter insurance reviewed and patient has a bed at [facility] tomorrow. Both daughter and patient are agreeable to0 plan. No Auth, insurance
confirmed.
Plan; Skilled placement at [facility]
Report [phone]
--- NOTE | 2025-03-05 12:50 | PTCARENOTE ---
Patient refusing to get OOB to chair.
[2025-03-05] MEDS: NOVOLOG FLEXPEN-LOW RESISTANCE 2 UNITS SC (12:51)
[2025-03-05] MEDS: LEVAQUIN 750 MG PO (12:52)
[2025-03-05 16:17] VITALS: BP 127/67
[2025-03-05 16:55] LABS: Glucose - Point of Care 171 mg/dl (70-99)
[2025-03-05] MEDS: CYMBALTA DELAYED RELEASE 60 MG PO (17:59)
[2025-03-05 22:14] LABS: Glucose - Point of Care 168 mg/dl (70-99)
[2025-03-05 23:32] VITALS: BP 118/62
[2025-03-06 06:50] LABS: Hematocrit 27.7 % (37.0-47.0); Hemoglobin 9.1 g/dL (12.0-16.0); Mean Corp Hgb Conc. 32.9 g/dL (33.0-37.0); Mean Corpuscular Hgb 28.4 pg (27.0-31.0); Mean Corpuscular Volume 86.6 fL (81.0-99.0); Mean Platelet Volume 9.3 fL (7.4-10.4); Platelet Count 339 10^3/uL (130-400); Red Cell Dist. Width 13.7 % (11.5-14.5); White Blood Cell Count 9.8 10^3/uL (4.8-10.8)
[2025-03-06 07:08] LABS: Glucose - Point of Care 290 mg/dl (70-99)
[2025-03-06 07:16] LABS: Blood Urea Nitrogen 13 mg/dl (7-17); Carbon Dioxide 21 mmol/L (22-30); Chloride 109 mmol/L (98-107); Estimated Creatinine Clearance 38 ml/min; Glucose 237 mg/dl (70-99); Potassium 3.5 mmol/L (3.5-5.1); Sodium 137 mmol/L (135-145); eGFR > 60.00
[2025-03-06 07:45] VITALS: BP 116/69
--- NOTE | 2025-03-06 08:42 | W.PN.HOSP.TC ---
Today's Communication/Plan
-
Discharge to SNF today
Assessment / Plan
Assessment / Plan
Assessment:
Acute hypoxemic respiratory failure secondary to large left upper lobe pneumonia
Severe sepsis with acute organ dysfunction
Severe sepsis secondary to pneumonia with acute organ dysfunction in form of acute hypoxic relative failure
- continue Levaquin q48h, day 5/7 - switch to orals
- monitor fever/WBC trends
- wean O2 as able
- PT/OT/ST evals - SNF
Patient cleared for discharge today to SNF
Hyponatremia
- monitor
Mild transaminitis possibly hepatic steatosis
- continue to monitor
Essential hypertension
- continue losartan
Hyperlipidemia
- continue statin
GERD
- continue omeprazole
Type 2 diabetes
- continue metformin
- A1c is 8.1%
Depression
- continue duloxetine
Chronic anemia
- continue iron supplement
History of migraines
- continue Tegretol
History of temporomandibular joint dysfunction
Hypocalcemia in setting of hypoalbuminemia
- s/p IV Calcium
DVT ppx: SC heparin
Code: Full
Total time spent on today's encounter was 65 minutes which included time spent in counseling the patient/family regarding diagnosis and treatment plan as listed above, goals of care, and symptom management. Case was discussed with nursing staff,
specialists, and care coordinators/case management. All labs and imaging personally reviewed by me. Remainder the time spent in detailed review of previous records, lab data, imaging, and other medical provider documentation.
Anticipated Discharge: Today
Subjective/Interval History
-
Date of Service: March 06, 2025
Patient seen and examined at bedside, denies any chest pain or shortness of breath, no abdominal pain, no nausea, no vomiting, no diarrhea or constipation.
Objective Data
-
Labs:
Laboratory Results
03/06/25
05:57
WBC 9.8
Hgb 9.1 L
Hct 27.7 L
Plt Count 339
Sodium 137
Potassium 3.5
Chloride 109 H
Carbon Dioxide 21 L
BUN 13
Creatinine 0.8
Glucose 237 H
Calcium 8.0 L
Vital Signs:
Vital Signs
Temp Pulse Resp BP Pulse Ox
98 F 79 18 116/69 94
03/06/25 07:45 03/06/25 07:45 03/06/25 07:45 03/06/25 07:45 03/06/25 07:45
I&O
03/05/25 03/06/25 03/07/25
06:59 06:59 06:59
Intake Total 540 / 540 480 / 480
Balance 540 / 540 480 / 480
Physical Exam
-
General: Well Developed, Well Nourished, No Apparent Distress and Comfortable
HEENT: Normocephalic, Atraumatic, Moist Mucous Membranes, No Ptosis, PERRLA and Nose Appears Normal
Respiratory: Rales and Non Labored Respirations
Cardiac: Regular Rhythm and S1/S2
Breast: Deferred by me
GI: Soft, Nontender, Nondistended and Normal Bowel Sounds
Genito-urinary: No Costovertebral Tender
Musculoskeletal: No Clubbing, No Cyanosis and No Edema
Skin: Warm
Neuro: Awake, Alert, Oriented, AO x 3 and No Motor Deficits
Psych: Calm
Data Reviewed
-
Diagnostic Radiology: Image personally visualized and interpreted and Report Reviewed by me
CT Scan: Image personally visualized and interpreted and Report Reviewed by me
Ultrasound: Image personally visualized and interpreted and Report Reviewed by me
MRI: Image personally visualized and interpreted and Report Reviewed by me
Medical Tests (Nuc Med, Echo etc): Image personally visualized and interpreted and Report Reviewed by me
Labs: Labs Reviewed by me
Old Records: Reviewed
[2025-03-06] MEDS: CYMBALTA DELAYED RELEASE 20 MG PO (08:55)
[2025-03-06] MEDS: TEGRETOL 200 MG PO (08:55)
[2025-03-06] MEDS: LIPITOR 20 MG PO (08:55)
[2025-03-06] MEDS: PROTONIX 40 MG PO (08:55)
[2025-03-06] MEDS: VITAMIN B-12 1000 MCG PO (08:55)
[2025-03-06] MEDS: VITAMIN D3 (cholecalciferol) 25 MCG PO (08:55)
[2025-03-06] MEDS: NOVOLOG FLEXPEN-LOW RESISTANCE 3 UNITS SC (08:55)
[2025-03-06] MEDS: VITAMIN C 500 MG PO (08:55)
[2025-03-06] MEDS: FEOSOL 325 MG PO (08:55)
[2025-03-06] MEDS: MUCINEX 1200 MG PO (08:55)
[2025-03-06] MEDS: THERAGRAN 1 TABLET PO (08:55)
[2025-03-06] MEDS: HEPARIN 5000 UNITS SC (08:56)
[2025-03-06 09:50] VITALS: BP 135/69; PULSE 75; O2SAT 92
[2025-03-06] MEDS: ZOFRAN 4 MG IV (10:11)
[2025-03-06 10:32] VITALS: BP 135/69; PULSE 75; O2SAT 93
--- NOTE | 2025-03-06 11:54 | W.DCSUMMARY ---
Discharge Summary
Discharge Data
Date of Admission: 03/01/25
Date of Discharge: 03/06/25
-
Pending Results: No
Hospital Course
Hospital course
89 yo female with h/o HTN, HLD, GERD, NIDDM, depression, presents from home after a fall, Ct head shows: There is moderate ventricle sulcal prominence consistent with atrophy and mostly in the frontal lobes. Brain parenchyma is normal attenuation.
There is no intra- or extra-axial mass, hemorrhage, or fluid collection. There is no midline shift nor mass effect. Visualized paranasal sinuses are free of mucosal disease
CT chest shows:
Large left upper lobe pneumonia.
No pulmonary embolus.
Tiny left pleural effusion.
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
Moderate hiatal hernia
Started on IV antibiotic and symptoms improved.
Was hypoxic during hospitalization, currently at 1 L of oxygen.
Patient seen by physical therapy recommended SNF.
Patient will be discharged to SNF today.
During hospitalization patient was treated from the following
Acute hypoxemic respiratory failure secondary to large left upper lobe pneumonia
Severe sepsis with acute organ dysfunction
Severe sepsis secondary to pneumonia with acute organ dysfunction in form of acute hypoxic relative failure
- continue Levaquin q48h, day 5/7 - switch to orals
- monitor fever/WBC trends
- wean O2 as able
- PT/OT/ST evals - SNF
Patient cleared for discharge today to SNF
Hyponatremia
- monitor
Mild transaminitis possibly hepatic steatosis
- continue to monitor
Essential hypertension
- continue losartan
Hyperlipidemia
- continue statin
GERD
- continue omeprazole
Type 2 diabetes
- continue metformin
- A1c is 8.1%
Depression
- continue duloxetine
Chronic anemia
- continue iron supplement
History of migraines
- continue Tegretol
History of temporomandibular joint dysfunction
Hypocalcemia in setting of hypoalbuminemia
- s/p IV Calcium
DVT ppx: SC heparin
Code: Full
Total time spent on today's encounter was 40 minutes which included time spent in counseling the patient/family regarding diagnosis and treatment plan as listed above, goals of care, and symptom management. Case was discussed with nursing staff,
specialists, and care coordinators/case management. All labs and imaging personally reviewed by me. Remainder the time spent in detailed review of previous records, lab data, imaging, and other medical provider documentation.
Anticipated Discharge: Today
Discharge Plan
-
Patient Disposition: Long Term/SNF
Discharge Diagnosis/Procedures: Acute hypoxic respiratory failure.
Pneumonia.
Hyponatremia
Diet: As tolerated and Regular
Activity: As tolerated
Other Services: PT and OT
Referrals:
Primary care physician [Other, Family Practice]
NONE,* [Family Provider, Internal Medicine]
Prescriptions:
New
levofloxacin 750 mg Tablet
750 mg PO Q48H 4 Days Qty: 2 0RF
guaifenesin 600 mg Tablet Extended Release 12hr
1,200 mg PO Q12 10 Days Qty: 40 0RF
ondansetron 4 mg tablet,disintegrating
4 mg PO Q6H PRN (Reason: nausea and vomiting) Qty: 20 0RF
Continued
atorvastatin 20 mg tablet
20 mg PO DAILY
tizanidine 2 mg tablet
2 mg PO Q8HPRN PRN (Reason: muscle spasm)
Patient Comments:
pt says she takes this for face pain
sumatriptan succinate 100 mg tablet
100 mg PO DAILYPRN PRN (Reason: migraine)
cyanocobalamin (vitamin B-12) 1,000 mcg Tablet
1,000 mcg PO DAILY
therapeutic multivitamin Tablet
1 tab PO DAILY
carbamazepine 200 mg tablet
200 mg PO BID
ascorbic acid (vitamin C) [Vitamin C] 500 mg Tablet
500 mg PO DAILY
meclizine 25 mg Tablet
25 mg PO DAILY PRN (Reason: dizziness)
ferrous sulfate 325 mg (65 mg iron) Tablet
325 mg PO DAILY
metformin 500 mg tablet extended release 24 hr
500 mg PO BID
Patient Comments:
pt says that she takes this only twice a day
duloxetine 20 mg Capsule,Delayed Release(Dr/Ec)
20 mg PO DAILY
cholecalciferol (vitamin D3) 25 mcg (1,000 unit) Tablet
25 mcg PO DAILY
omeprazole 20 mg Tablet,Delayed Release (Dr/Ec)
20 mg PO DAILY
duloxetine 60 mg Capsule, Delayed Rel Sprinkle
60 mg PO QPM
Changed
losartan 100 mg tablet
50 mg PO DAILY Qty: 0 0RF
Discharge Orders:
Discharge Patient (As Directed); Ordered 03/06/25
Ordered By: Joceline Castaneda
Discharge Date and Time
Print Language: ROMANSH
[2025-03-06 12:08] VITALS: BP 118/74
[2025-03-06 12:08] LABS: Glucose - Point of Care 169 mg/dl (70-99)
[2025-03-06] MEDS: NOVOLOG FLEXPEN-LOW RESISTANCE 1 UNITS SC (12:37)
--- NOTE | 2025-03-06 14:19 | CM ---
Patient for transfer to [facility] and [facility] completed and form placed in chart. Patient daughter made aware and in agrrement. Please call report to [phone].
Plan; transfer to [facility]
[2025-03-06 15:40] VITALS: BP 115/64
[2025-03-06 16:49] LABS: Glucose - Point of Care 254 mg/dl (70-99)
== END 2025-03-06 17:46 | DRG 871 ==
LOC: 4 EAST ACU 18:03
PROVIDERS: Internal Medicine; Registered Nurse; ADMITTING PHYSICIAN Hospitalist; ATTENDING PHYSICIAN General Practice; EMERGENCY PHYSICIAN Emergency Medicine
DX: A41.9 Sepsis, unspecified organism (principal); J18.9 Pneumonia, unspecified organism; J96.01 Acute respiratory failure with hypoxia; E87.1 Hypo-osmolality and hyponatremia; R47.01 Aphasia; I10 Essential (primary) hypertension; F32.A Depression, unspecified; E78.00 Pure hypercholesterolemia, unspecified; K21.9 Gastro-esophageal reflux disease without esophagitis; E88.09 Other disorders of plasma-protein metabolism, not elsewhere classified; E83.51 Hypocalcemia; R65.20 Severe sepsis without septic shock; K76.0 Fatty (change of) liver, not elsewhere classified; E11.36 Type 2 diabetes mellitus with diabetic cataract; G43.909 Migraine, unspecified, not intractable, without status migrainosus; R74.01 Elevation of levels of liver transaminase levels; M26.69 Other specified disorders of temporomandibular joint; K44.9 Diaphragmatic hernia without obstruction or gangrene; D64.9 Anemia, unspecified; W18.39XA Other fall on same level, initial encounter; Y93.01 Activity, walking, marching and hiking; Y92.007 Garden or yard of unspecified non-institutional (private) residence as the place of occurrence of the external cause; Z88.0 Allergy status to penicillin; Z88.5 Allergy status to narcotic agent; Z79.84 Long term (current) use of oral hypoglycemic drugs; Z11.52 Encounter for screening for COVID-19
CPT/HCPCS: 70450; 71275; 80048; 80053; 82962; 83036; 83880; 84443; 84484; 85025; 85027; 85379; 86850; 86900; 86901; 87040; 87502; 87811; 92610; 93005; 96374; 96375; 97163; 97167; 97530; 97535; 99285; Q9967

== ENCOUNTER → 2025-03-10 09:36 | Outpatient (REF) | payer OTHER, MEDICARE, BC, SELFPAY | LOC: OLABP 09:36 | PROVIDERS: ATTENDING PHYSICIAN Family Medicine | DX: A41.9 Sepsis, unspecified organism (principal); J18.9 Pneumonia, unspecified organism; J96.01 Acute respiratory failure with hypoxia; E87.1 Hypo-osmolality and hyponatremia; I10 Essential (primary) hypertension; E78.5 Hyperlipidemia, unspecified; K21.9 Gastro-esophageal reflux disease without esophagitis; E11.9 Type 2 diabetes mellitus without complications; F32.0 Major depressive disorder, single episode, mild | CPT/HCPCS: 87324; 87449 ==

== ENCOUNTER → 2025-03-10 09:50 | Outpatient (REF) | payer OTHER, MEDICARE, BC, SELFPAY ==
[2025-03-10 11:15] LABS: Hematocrit 30.3 % (37.0-47.0); Hemoglobin 9.9 g/dL (12.0-16.0); Mean Corp Hgb Conc. 32.7 g/dL (33.0-37.0); Mean Corpuscular Hgb 28.7 pg (27.0-31.0); Mean Corpuscular Volume 87.8 fL (81.0-99.0); Mean Platelet Volume 9.1 fL (7.4-10.4); Platelet Count 502 10^3/uL (130-400); Red Blood Cell Count 3.45 10^6/uL (4.20-5.40); Red Cell Dist. Width 14.4 % (11.5-14.5); White Blood Cell Count 12.5 10^3/uL (4.8-10.8)
[2025-03-10 11:25] LABS: Blood Urea Nitrogen 11 mg/dl (7-17); Calcium 8.5 mg/dl (8.4-10.2); Carbon Dioxide 23 mmol/L (22-30); Chloride 107 mmol/L (98-107); Glucose 123 mg/dl (70-99); Potassium 4.1 mmol/L (3.5-5.1); Sodium 137 mmol/L (135-145); eGFR > 60.00
[2025-03-10 11:59] LABS: % Basophils 0.9 % (0-2); % Eosinophils 2.3 % (0-6); % Lymphocytes 12.6 % (20.5-51.1); % Monocytes 8.2 % (1.7-9.3); Absolute Basophils 0.1 10^3/uL (0-0.2); Absolute Eosinophils 0.3 10^3/uL (0-0.7); Absolute Lymphocytes 1.6 10^3/uL (1.2-3.4); Absolute Neutrophils 8.5 10^3/uL (1.4-6.5); Nucleated Red Blood Cells % 0 %
== END ==
LOC: OLABP 09:50
PROVIDERS: ATTENDING PHYSICIAN Family Medicine
DX: A41.9 Sepsis, unspecified organism (principal); J18.9 Pneumonia, unspecified organism; J96.01 Acute respiratory failure with hypoxia; E87.1 Hypo-osmolality and hyponatremia; I10 Essential (primary) hypertension; E78.5 Hyperlipidemia, unspecified; K21.9 Gastro-esophageal reflux disease without esophagitis; E11.9 Type 2 diabetes mellitus without complications; F32.0 Major depressive disorder, single episode, mild
CPT/HCPCS: 36415; 80048; 85025

== ENCOUNTER → 2025-03-11 09:25 | Outpatient (REF) | payer OTHER, MEDICARE, BC, SELFPAY ==
[2025-03-11 10:58] LABS: % Basophils 0.5 % (0-2); % Eosinophils 1.7 % (0-6); % Immature Granulocytes 4.7 % (0-0.5); % Monocytes 6.9 % (1.7-9.3); % Neutrophils 75.2 % (42.2-75.2); Absolute Basophils 0.1 10^3/uL (0-0.2); Absolute Eosinophils 0.2 10^3/uL (0-0.7); Absolute Immature Granulocytes 0.6 10^3/uL (0-0.05); Absolute Lymphocytes 1.4 10^3/uL (1.2-3.4); Absolute Monocytes 0.9 10^3/uL (0.1-0.6); Absolute Neutrophils 9.7 10^3/uL (1.4-6.5); Hematocrit 27.6 % (37.0-47.0); Hemoglobin 9.3 g/dL (12.0-16.0); Mean Corp Hgb Conc. 33.7 g/dL (33.0-37.0); Mean Corpuscular Hgb 29.5 pg (27.0-31.0); Mean Corpuscular Volume 87.6 fL (81.0-99.0); Mean Platelet Volume 9.4 fL (7.4-10.4); Nucleated Red Blood Cells % 0 %; Platelet Count 478 10^3/uL (130-400); Red Blood Cell Count 3.15 10^6/uL (4.20-5.40); Red Cell Dist. Width 14.6 % (11.5-14.5); White Blood Cell Count 12.9 10^3/uL (4.8-10.8)
[2025-03-11 14:01] LABS: Urine Albumin 2+ (Neg - Trace); Urine Bilirubin Negative (Negative); Urine Character Clear (Clear); Urine Color Yellow; Urine Glucose Negative (Negative); Urine Ketone 1+ (Negative); Urine Leukocyte 3+ (Negative); Urine Nitrite Negative (Negative); Urine Occult Blood Negative (Negative); Urine Specific Gravity 1.025 (<1.030); Urine Urobilinogen Negative (Neg - 1+)
[2025-03-11 14:08] LABS: Urine Squamous Cell >30 /LPF (Few)
[2025-03-11 14:09] LABS: Urine Bacteria Few (Negative); Urine Red Blood Cell 0-2 /HPF (0-2); Urine White Cell 26-30 /HPF (0-5)
[2025-03-11 14:10] LABS: Urine Yeast Few (Negative)
== END ==
LOC: OLABP 09:25
PROVIDERS: ATTENDING PHYSICIAN Family Medicine
DX: A41.9 Sepsis, unspecified organism (principal); J18.9 Pneumonia, unspecified organism; J96.01 Acute respiratory failure with hypoxia; E87.1 Hypo-osmolality and hyponatremia; I10 Essential (primary) hypertension; E78.5 Hyperlipidemia, unspecified; K21.9 Gastro-esophageal reflux disease without esophagitis; E11.9 Type 2 diabetes mellitus without complications; F32.0 Major depressive disorder, single episode, mild
CPT/HCPCS: 36415; 81003; 81015; 85025; 87086

== ENCOUNTER → 2025-03-13 11:59 | Outpatient (REF) | payer OTHER, MEDICARE, BC, SELFPAY ==
[2025-03-13 13:20] LABS: Uric Acid 2.5 mg/dl (2.5-6.2)
[2025-03-13 13:25] LABS: Urine Albumin 2+ (Neg - Trace); Urine Bilirubin Negative (Negative); Urine Character Cloudy (Clear); Urine Color Yellow; Urine Glucose 2+ (Negative); Urine Ketone Negative (Negative); Urine Leukocyte 2+ (Negative); Urine Nitrite Negative (Negative); Urine Occult Blood Negative (Negative); Urine Urobilinogen Negative (Neg - 1+)
[2025-03-13 14:31] LABS: Urine Amorphous Seen; Urine Red Blood Cell 0-2 /HPF (0-2); Urine Squamous Cell >30 /LPF (Few)
== END ==
LOC: OLABP 11:59
PROVIDERS: ATTENDING PHYSICIAN Family Medicine
DX: A41.9 Sepsis, unspecified organism (principal); J18.9 Pneumonia, unspecified organism; J96.01 Acute respiratory failure with hypoxia; E87.1 Hypo-osmolality and hyponatremia; I10 Essential (primary) hypertension; E78.5 Hyperlipidemia, unspecified; K21.9 Gastro-esophageal reflux disease without esophagitis; E11.9 Type 2 diabetes mellitus without complications; F32.0 Major depressive disorder, single episode, mild
CPT/HCPCS: 81003; 81015; 84550; 87086